=== PATIENT | female | born 1950 | race Caucasian/White ===

== ENCOUNTER → 2018-12-09 | Outpatient (CLI) | payer MEDICARE ==
--- NOTE | 2018-12-09 18:25 | Diagnostic Imaging Report ---
INDICATION: Left wrist injury. FINDINGS: Three views of the left wrist show osteoarthritic changes of the first carpometacarpal joint. There is no acute fracture or dislocation. IMPRESSION: Osteoarthritis. No acute abnormalities seen. Dictated by: Dictated on workstation # [id number]
== END ==
LOC: RAD FS 17:59
PROVIDERS: ATTEND Nurse Practitioner Family
DX: S69.92XA Unspecified injury of left wrist, hand and finger(s), initial encounter (principal); M19.032 Primary osteoarthritis, left wrist
CPT/HCPCS: 73110